=== PATIENT | female | born 1960 | race Caucasian/White ===

== ENCOUNTER 2024-12-03 07:10 | Outpatient (CLI) | payer MEDICAID, SELFPAY ==
[2024-12-03 07:34] LABS: Basophils # 0.1 K/mm3 (0-0.2); Basophils % 0.7 % (0.1-2.0); Eosinophils # 0.3 Kmm3 (0.0-0.4); Eosinophils % 3.8 % (0.1-12.0); Hematocrit 45.3 % (37.0-47.0); Hemoglobin 14.3 g/dL (12.2-16.2); Immature Granulocytes # 0.02 10^3uL; Immature Granulocytes % 0.2 %; Lymphocytes # 2.3 K/mm3 (0.7-4.5); Lymphocytes % 27.9 % (10-50); Mean Corpuscular HGB Conc 31.6 g/dL (31.8-35.4); Mean Corpuscular Hemoglobin 30.3 pg (27.0-31.2); Monocytes # 0.7 K/mm3 (0.1-1.0); Monocytes % 8.3 % (1.7-9.3); Neutrophils # 4.8 K/mm3 (1.8-7.8); Neutrophils % 59.1 % (37.0-80.0); Nucleated Red Blood Cells # 0 10^3/uL; Nucleated Red Blood Cells % 0 %; Platelet Count 314 K/mm3 (142-424); Red Blood Count 4.72 M/mm3 (4.20-5.40); Red Cell Distribution Width 13.2 % (11.5-17.5); Red Cell Distribution Width-SD 46.8 fL; White Blood Count 8.1 K/mm3 (4.8-10.8)
[2024-12-03 08:02] LABS: Alanine Aminotransferase 30 U/L (12-78); Albumin Level 3.8 g/dl (3.5-5.0); Albumin/Globulin Ratio 1.4 (1.1-1.8); Alkaline Phosphatase 75 U/L (38-126); Anion Gap 9.1 mEq/L (5-15); Aspartate Amino Transferase 29 U/L (14-36); Bilirubin,Total 0.6 mg/dl (0.2-1.3); Blood Urea Nitrogen 12 mg/dl (7-17); Calcium 8.7 mg/dl (8.4-10.2); Carbon Dioxide 22 mmol/L (22.0-30.0); Chloride 109 mmol/L (98-107); Chol/HDL Ratio 5.5 (1-3.5); Cholesterol 199 mg/dl (140-200); Estimated Glomerular Filt Rate 101 ml/min (>60); GFR (African American) 122 ML/MIN (>60); Globulin 2.8 g/dL (1.3-3.2); Glucose 107 mg/dl (74-100); HDL Cholesterol 36 mg/dl (40-60); Potassium 4.1 mmoL/L (3.5-5.1); Sodium 136 mmol/L (136-145); Total Protein,Serum 6.6 g/dl (6.3-8.2); Triglycerides 196 mg/dl (30-150); VLDL Cholesterol 39 mg/dL (0-40)
[2024-12-03 08:12] LABS: Direct LDL Cholesterol 126.37 mg/dL (100-129)
[2024-12-03 08:30] LABS: Thyroid Stimulating Hormone 2.89 uIU/mL (0.465-4.68)
[2024-12-03 10:36] LABS: Hemoglobin A1C 5.8 % (4.0-6.0)
== END 2024-12-03 23:59 | disposition home or self-care (01) ==
PROVIDERS: PCP Nurse Practitioner Family; Visit Provider Nurse Practitioner Family
DX: H53.9 Unspecified visual disturbance; I49.9 Cardiac arrhythmia, unspecified; I10 Essential (primary) hypertension
CPT/HCPCS: 36415; 80053; 80061; 83036; 84443; 85025

== ENCOUNTER 2025-02-02 12:36 | Outpatient (CLI) | payer MEDICAID, SELFPAY ==
--- NOTE | 2025-02-02 | CA_ITS ---
FINAL REPORT CLINICAL HISTORY: Near syncope, right arm numbness and unable to use it yesterday while hanging clothes up, double vision/blurred vision. Smoker COMPARISON: None FINDINGS: RIGHT CAROTID: CCA PSV - 123 cm/sec ICA PSV - 173 cm/sec ICA/CCA PSV ratio -1.41 . Comments: Mild plaque disease is noted. LEFTCAROTID: CCA PSV - 37. cm/sec ICA PSV - 69. cm/sec ICA/CCA PSV ratio - 3.16 . Comments: Abnormal tardus parvus waveforms suggestive of more proximal stenosis of the left CCA. Vertebral arteries are patent. IMPRESSION: Less than 50% carotid stenosis on the right. Diminished flow velocities with abnormal waveforms of the left cervical carotids suggesting more proximal stenosis of the left CCA. Recommend CTA chest and neck for further evaluation. Reviewed, Interpreted and Dictated by Eliza Kemp MD Transcribed by Julianne Rider Authenticated and [facility]
== END 2025-02-02 23:59 | disposition home or self-care (01) ==
LOC: RT 12:36
PROVIDERS: PCP Nurse Practitioner Family; Visit Provider Nurse Practitioner Family
DX: I65.21 Occlusion and stenosis of right carotid artery (principal); R93.89 Abnormal findings on diagnostic imaging of other specified body structures; F17.200 Nicotine dependence, unspecified, uncomplicated
CPT/HCPCS: 93880

== ENCOUNTER 2025-02-05 08:28 | Outpatient (CLI) | payer MEDICAID, SELFPAY ==
[2025-02-05 08:50] LABS: Blood Urea Nitrogen 12 mg/dl (7-17); Creatinine,Serum 0.60 mg/dl (0.52-1.04); Estimated Glomerular Filt Rate 101 ml/min (>60); GFR (African American) 122 ML/MIN (>60)
== END 2025-02-05 23:59 | disposition home or self-care (01) ==
LOC: LAB 08:29
PROVIDERS: PCP Nurse Practitioner Family; Visit Provider Nurse Practitioner Family
DX: I65.22 Occlusion and stenosis of left carotid artery (principal)
CPT/HCPCS: 36415; 82565; 84520

== ENCOUNTER 2025-02-16 07:53 | Outpatient (CLI) | payer MEDICAID, SELFPAY ==
--- NOTE | 2025-02-16 07:56 | CT_ITS ---
FINAL REPORT TECHNIQUE: NASCET technique utilized for stenosis evaluation. CLINICAL HISTORY: CAROTID STENOSIS COMPARISON: Carotid Doppler 02/02/2025 FINDINGS: RIGHT CAROTID: There is mural thrombus present in the right common carotid artery, best seen on image #61 of series 3, that produces less than 50% luminal diameter stenosis. LEFT CAROTID: There is a longer segment of mural thrombus in the distal left common carotid artery, a segment 1.5 cm in length, that produces near total occlusion of the left common carotid artery. There is a dense calcification present in the left common carotid artery as well, at the distal end of the narrowed segment. The left common and internal carotid arteries also display a diffusely smaller caliber than the right carotid artery. VERTEBRALS: The vertebrals are patent. No significant stenosis is present. IMPRESSION: Mural thrombus in the right common carotid artery producing less than 50% stenosis. There is a longer segment of mural thrombus which produces near-total occlusion of the distal left common carotid artery as described. Reviewed, Interpreted and Dictated by Chano Baez MD Transcribed by Cristal Alvarado Authenticated and [facility]
--- NOTE | 2025-02-16 07:56 | CT_ITS ---
FINAL REPORT TECHNIQUE: The patient was injected with IV contrast. Axial images were obtained through the chest in a PE protocol. 3-D reconstruction images were also performed. Individualized dose reduction techniques using automated exposure control or adjustment of the MA and/or KV according to patient's size were employed. CLINICAL HISTORY: carotid stenosis on vascular ultrasound( Less than 50% carotid stenosis on the right. Diminished flow velocities with abnormal waveforms of the left cervical carotids suggesting more proximal stenosis of the left CCA. Recommend CTA chest and neck for further evaluation.) COMPARISON: None FINDINGS: Mediastinal vasculature is adequately opacified. No pulmonary artery filling defects are identified to suggest PE. There is no aortic dissection. There is no axillary adenopathy. There is no hilar or mediastinal adenopathy. Moderate changes of centrilobular emphysema are noted. The heart size is normal. There is no pericardial or pleural effusion. There is a right adrenal complex mass, 4 cm in size, with a mean attenuation value of 58 Hounsfield units. No suspicious infiltrate or nodule is identified. A calcified granuloma is present in the right upper lobe. IMPRESSION: No pulmonary embolus or dissection. Right adrenal complex mass, 4 cm in size, with a mean attenuation value of 58 Hounsfield units. Recommend adrenal mass protocol CT for further evaluation. Reviewed, Interpreted and Dictated by Chano Baez MD Transcribed by Cristal Alvarado Authenticated and . [facility]
[2025-02-16] MEDS: 0.9 % SODIUM CHLORIDE 50 ML VIAL 100 ML IV (08:35)
[2025-02-16] MEDS: IOPAMIDOL-370 (76%);100ML BOTTLE 200 ML IV (08:35)
[2025-02-16] MEDS: SODIUM CHLORIDE 0.9% 10ML SYR (RAD ONLY) 10 ML IV (08:36)
== END 2025-02-16 23:59 | disposition home or self-care (01) ==
LOC: RAD 07:54
PROVIDERS: PCP Nurse Practitioner Family; Visit Provider Nurse Practitioner Family
DX: I65.23 Occlusion and stenosis of bilateral carotid arteries (principal); E27.9 Disorder of adrenal gland, unspecified
CPT/HCPCS: 70498; 71275; Q9967

== ENCOUNTER 2025-06-01 07:21 | Outpatient (CLI) | payer MEDICAID, SELFPAY ==
--- NOTE | 2025-06-01 07:25 | CT_ITS ---
FINAL REPORT TECHNIQUE: Pre- and postcontrast images of the abdomen were performed by computed tomography. CLINICAL HISTORY: ADRENAL MASS COMPARISON: 02/2025 FINDINGS: The lung bases are clear. The liver is normal in size and attenuation. The spleen is unremarkable. The pancreas is unremarkable. The kidneys enhance appropriately. There is redemonstration of a well-circumscribed right adrenal mass measuring up to 4 cm in greatest dimension. Precontrast mean attenuation value of -11 Hounsfield units. Left adrenal gland is normal. There is ectasia of the abdominal aorta measuring up to 3.9 x 3.7 cm. There is dense iliac artery calcification. There is a large amount of mural thrombus throughout the abdominal aortic aneurysm with communication between the lumen of the aorta and a single lumbar artery. Distal abdominal aorta and iliac arteries are occluded. There is advanced facet hypertrophy noted of the lower lumbar spine. 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 Abdominal aortic aneurysm measuring up to 3.9 cm which is occluded distally. Reviewed, Interpreted and Dictated by Chano Baez MD Transcribed by Chiqui Carrillo Authenticated and [facility]
[2025-06-01 08:04] LABS: Blood Urea Nitrogen 15 mg/dl (7-17); Creatinine,Serum 0.70 mg/dl (0.52-1.04); Estimated Glomerular Filt Rate 85 ml/min (>60); GFR (African American) 102 ML/MIN (>60)
[2025-06-01] MEDS: SODIUM CHLORIDE 0.9% 10ML SYR (RAD ONLY) 10 ML IV (08:52)
[2025-06-01] MEDS: IOPAMIDOL-370 (76%);100ML BOTTLE 75 ML IV (08:53)
== END 2025-06-01 23:59 | disposition home or self-care (01) ==
LOC: RAD 07:24
PROVIDERS: PCP Nurse Practitioner Family; Visit Provider Nurse Practitioner Family
DX: E27.8 Other specified disorders of adrenal gland (principal); I71.40 Abdominal aortic aneurysm, without rupture, unspecified; I70.0 Atherosclerosis of aorta
CPT/HCPCS: 36415; 74170; 82565; 84520; Q9967